=== PATIENT | female | born 1965 ===

== ENCOUNTER 2025-08-30 07:00 | Day surgery (SDC) | payer OTHER ==
[2025-08-27 10:56] VITALS: BP 142/80
[~2025-08-30] VITALS: Ht 157.5 cm; Wt 81.6 kg
[~2025-08-30 07:00] MED LIST: DILTIAZEM ER60 MG PO; LOSARTAN POTASS25 MG PO; METFORMIN HCL500 M3 PO; OZEMPIC1 MG/0.71; PRAVASTATIN SOD20 MG PO
[2025-08-30] MEDS ORDERED: CEFAZOLIN SODIUM 1,000 MG VIAL ONE (08:54)
[2025-08-30] MEDS ORDERED: BUPIVACAINE HCL/MPF 0.5% 30ML VIAL ONE (10:19)
[2025-08-30] MEDS ORDERED: EPINEPHRINE HCL/PF 1 MG/ML AMPUL ONE (10:19)
[2025-08-30] MEDS ORDERED: LIDOCAINE HCL 1%/EPINEPHRINE 20ML VIAL IJ ONE (10:19)
[2025-08-30] MEDS ORDERED: ONDANSETRON HCL 2 MG/ML VIAL ONE (15:26)
== END 2025-08-30 18:00 | disposition home or self-care (01) ==
LOC: CIR.AMB 07:00
PROVIDERS: ATTEND Orthopaedic Surgery
DX: M23.221 Derangement of posterior horn of medial meniscus due to old tear or injury, right knee (principal); M65.861 Other synovitis and tenosynovitis, right lower leg